=== PATIENT | male | born 1940 | race Caucasian/White ===

== ENCOUNTER → 2018-06-18 | Outpatient (CLI) | payer OTHER ==
[~2018-06-18] MED LIST: B12INJ IM; COREG25 MG PO; DEMADEX10 MG PO; FLOMAX0.4 MG PO; MYRBETRIQ50 MG PO; NORCO 5-325 TA1 EACH PO; NORVASC5 MG PO; SPIRONOLACTONE25 M1 PO; VITAMIN D22000 UNIT PO; WELLBUTRIN XL300 MG PO
--- NOTE | 2018-06-18 16:57 | EKG ---
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1940 Requested By: Irene Dhaliwal Order Number: [id number] MD: Roderick Sparks Measurements Intervals [place] Rate: 76 P: 70 MI: 183 QRS: -7 QRSD: 96 T: 78 QT: 402 QTc: 453 Interpretive Statements Sinus rhythm Abnormal R-wave progression, early transition Compared to ECG 07/18/1999 15:08:43 Sinus tachycardia no longer present Electronically Signed On 06-18-2018 16:56:50 CDT by Roderick Sparks [email or web address] ��������������������������������������������� <ELECTRONICALLY SIGNED> ���������������������������������������� By: Roderick Sparks MD, [facility] ��������������������������������������������� 06/18/18 1656 0 0 Roderick Sparks MD, [facility] /EPI
== END | disposition home or self-care (01) ==
LOC: LITH 08:38
DX: N20.0 Calculus of kidney (principal); N40.1 Benign prostatic hyperplasia with lower urinary tract symptoms; I10 Essential (primary) hypertension; E11.9 Type 2 diabetes mellitus without complications; K21.9 Gastro-esophageal reflux disease without esophagitis; Z87.19 Personal history of other diseases of the digestive system; G43.909 Migraine, unspecified, not intractable, without status migrainosus; Z87.440 Personal history of urinary (tract) infections; Z86.711 Personal history of pulmonary embolism; Z79.01 Long term (current) use of anticoagulants; Z90.49 Acquired absence of other specified parts of digestive tract; Z98.890 Other specified postprocedural states; Z79.899 Other long term (current) drug therapy; Z88.8 Allergy status to other drugs, medicaments and biological substances